=== PATIENT | female | born 1950 | race Caucasian/White ===

== ENCOUNTER 2019-10-13 09:20 | Day surgery (SDC) | payer OTHER ==
[2019-10-04 14:52] VITALS: BMI 26.5
[2019-10-13] MEDS ORDERED: PROPOFOL 20 ML ONE ×2 (09:54)
[2019-10-13 09:56] VITALS: TEMP 98.2
[2019-10-13 12:02] VITALS: BP 116/56; PULSE 56
== END 2019-10-13 12:00 | disposition home or self-care (01) ==
LOC: FASU-ENDO 09:20
PROVIDERS: ATTEND Internal Medicine Gastroenterology
PROC: 0DJD8ZZ Inspection of Lower Intestinal Tract, Via Natural or Artificial Opening Endoscopic (ICD-10-PCS; principal; 2019-10-13 11:04)
DX: Z12.11 Encounter for screening for malignant neoplasm of colon (principal); K64.1 Second degree hemorrhoids; K64.4 Residual hemorrhoidal skin tags